=== PATIENT | female | born 1960 | race Caucasian/White ===

== ENCOUNTER → 2017-06-19 | Outpatient (CLI) | payer OTHER ==
--- NOTE | 2017-06-20 14:52 | MAM ---
EXAM DESCRIPTION: 3D Screening BILATERAL CLINICAL HISTORY: 57 yearsFemaleSCREENING. No complaints. Postmenopausal. Hormone replacement five or more years earlier.. COMPARISON: prior. No prior reports available. Reports from prior examinations also reviewed. Report from prior examination also reviewed. TECHNIQUE: Bilateral CC and MLO projection full-field images, 3-D tomosynthesis digital mammographic technique. Also bilateral synthesized CC/ MLO full-field images. CAD not utilized. FINDINGS: The breast parenchymal density pattern is: Scattered areas of fibroglandular density. No skin thickening or nipple retraction focal asymmetry in the middle third of the lateral right breast at the 930 no definite calcifications or mass density. Well-circumscribed mass densities in the anterior third of the medial right breast and in the axillary tail of the right breast showing radiolucency with, symphysis consistent with lymph nodes. Bilateral axillary lymph nodes. Intramammary lymph node in the upper outer quadrant of the medial third of the left breast. Clock position. No focal, stellate mass or density, , and no suspicious microcalcifications bilaterally. IMPRESSION: BI-RADS CATEGORY: 0 - INCOMPLETE- Need additional imaging evaluation. FOLLOW-UP: Recall for additional imaging: Targeted right breast sonography of the region of interest in the middle third of the lateral right breast as indicated in the report.. Written communication explaining the results and follow-up will be mailed to the patient and referring care provider. Electronically signed by: Marlo Morse MD 06/20/2017 2:51 PM CDT Workstation: [id number]
== END ==
LOC: MAMMO 08:42
PROVIDERS: ATTEND Nurse Practitioner Family
DX: Z12.31 Encounter for screening mammogram for malignant neoplasm of breast (principal)

== ENCOUNTER → 2017-07-25 | Outpatient (CLI) | payer OTHER | END | disposition home or self-care (01) | LOC: YCFC.O 15:44 | PROVIDERS: ATTEND Nurse Practitioner Family | DX: R30.0 Dysuria (principal) ==

== ENCOUNTER → 2017-10-31 | Outpatient (CLI) | payer OTHER | END | disposition home or self-care (01) | LOC: LAB.O 12:11 | PROVIDERS: ATTEND Nurse Practitioner Family | DX: R30.0 Dysuria (principal) ==

== ENCOUNTER → 2018-05-09 | Outpatient (CLI) | payer OTHER | LOC: YCFC.O 10:47 | PROVIDERS: ATTEND Nurse Practitioner Family | DX: Z00.00 Encounter for general adult medical examination without abnormal findings (principal); Z13.29 Encounter for screening for other suspected endocrine disorder; Z13.220 Encounter for screening for lipoid disorders; R53.83 Other fatigue ==

== ENCOUNTER → 2018-05-26 | Outpatient (CLI) | payer OTHER | LOC: LAB.O 07:53 | PROVIDERS: ATTEND Nurse Practitioner Family | DX: R19.7 Diarrhea, unspecified (principal) ==

== ENCOUNTER → 2018-07-03 | Outpatient (CLI) | payer OTHER ==
--- NOTE | 2018-07-07 10:39 | MAM ---
EXAM DESCRIPTION: 3D Screening BILATERAL : Digital Mammography. CLINICAL HISTORY: 58 years Female SCREENING . No complaints. No family history of breast cancer. Childbirth. Postmenopausal. Currently on HRT. Right breast benign biopsy. COMPARISON: 3-D Mckenzie synthesis bilateral screening mammography 06/19/2017. Targeted right breast ultrasound 07/03/2017. Reports from prior examinations also reviewed. TECHNIQUE: Bilateral CC and MLO projection full-field images, 3-D tomosynthesis digital mammographic technique. CAD not utilized. FINDINGS: The breast parenchymal density pattern is: Scattered areas of fibroglandular density. No skin thickening or nipple retraction. . Right axillary and intramammary lymph nodes. Solitary microcalcifications bilaterally. Region of apparent focal asymmetry developing since the prior study at the 1200 clock position of the middle third of the left breast, 4 cm from the nipple. No new focal, stellate mass or density, focal asymmetry , and no suspicious microcalcifications right breast. IMPRESSION: BI-RADS CATEGORY: 0 - INCOMPLETE- Need additional imaging evaluation. FOLLOW-UP: Recall for additional imaging: Bilateral 3-D tomosynthesis full field LM images as well as left breast MLO 2-D spot compression of the region of interest. Targeted left breast ultrasound if indicated by diagnostic images.. Written communication concerning the IMPRESSION and Follow-up, will be mailed to the patient and referring health care provider. Electronically signed by: Marlo Morse MD 07/07/2018 10:38 AM CDT
== END ==
LOC: MAMMO 08:30
PROVIDERS: ATTEND Nurse Practitioner Family
DX: Z12.31 Encounter for screening mammogram for malignant neoplasm of breast (principal)

== ENCOUNTER → 2018-07-28 | Outpatient (CLI) | payer OTHER ==
--- NOTE | 2018-07-28 15:52 | MAM ---
EXAM DESCRIPTION: Diagnostic Mammo,Bilateral: Digital Mammography CLINICAL HISTORY: 58 yearsFemaleABNORMAL MAMMOGRAM focal asymmetry anterior to mid left breast.. COMPARISON: Bilateral screening digital breast tomosynthesis 07/03/2018. Targeted ultrasound left breast following this examination.. TECHNIQUE: Bilateral LM projection full-field images, digital mammographic tomosynthesis technique. Spot compression tomosynthesis anterior left breast in the LM and CC projections. Bilateral MLO full-field 2-D digital images. CAD not utilized. FINDINGS: The breast parenchymal density pattern is: Scattered areas of fibroglandular density. No skin thickening or nipple retraction bilateral axillary lymph nodes. Intramammary posterior lymph node on the right. Focal asymmetry at the 902 1200 clock position of the anterior and mid left breast approximately 4 cm from the nipple. Not as well demonstrated with the LM images. Ultrasound: Scanning of the upper inner quadrant of the anterior left breast with emphasis on the 900 clock position in the retroareolar breast. Heterogeneous fibroglandular and fatty echotexture. No distinct solid mass or cyst. No large calcifications or parenchymal edema. No overlying skin changes. No abnormal vascularity. IMPRESSION: 1. Bi-Rads Category 2: Benign. 2. Please refer to bilateral diagnostic digital breast tomosynthesis examination and report on this visit. The FINDINGS and the FOLLOW-UP plan were reviewed in person with the patient after the examination. Written communication explaining the IMPRESSION and FOLLOW-UP will be mailed to the patient and referring care provider. Electronically signed by: Marlo Morse MD 07/28/2018 3:50 PM CDT
--- NOTE | 2018-07-28 15:58 | US ---
EXAM DESCRIPTION: Breast,Left: Ultrasound CLINICAL HISTORY: 58 yearsFemaleABN MAMMO COMPARISON: Digital diagnostic tomosynthesis mammogram bilateral breast on this visit. TECHNIQUE: Transcutaneous scanning of the left breast utilizing workman-scale and Doppler modes. Scanning performed by the automobile mechanic helper and Dr. oMrse. FINDINGS: Scanning of the upper inner quadrant of the anterior left breast with emphasis on the 900 clock position in the retroareolar breast. Heterogeneous fibroglandular and fatty echotexture. No distinct solid mass or cyst. No large calcifications or parenchymal edema. No overlying skin changes. No abnormal vascularity. IMPRESSION: 1. Bi-Rads Category 2: Benign. 2. Please refer to bilateral digital tomosynthesis diagnostic breast examination and report on this visit. The FINDINGS and the FOLLOW-UP plan were reviewed in person with the patient after the examination. Written communication explaining the IMPRESSION and FOLLOW-UP will be mailed to the patient and referring care provider. Electronically signed by: Marlo Morse MD 07/28/2018 3:57 PM CDT
== END ==
LOC: US 11:30
PROVIDERS: ATTEND Nurse Practitioner Family
DX: R92.8 Other abnormal and inconclusive findings on diagnostic imaging of breast (principal)

== ENCOUNTER → 2018-08-28 | Outpatient (CLI) | payer OTHER ==
--- NOTE | 2018-08-28 14:32 | CT ---
EXAM DESCRIPTION: Chest w/o Contrast CLINICAL HISTORY: 58 years, Female, ABNORMAL FINDINGS ON DIAGNOSTIC IMAGING COMPARISON: Chest x-ray August 21, 2018 TECHNIQUE: Thin-section noncontrast axial CT images are obtained according to our protocol. Reconstructed MPR images are created and reviewed as well. FINDINGS: Lungs: Minimal linear scarring in the right middle lobe. There is mild left apical pleural parenchymal scarring. Otherwise no consolidating pulmonary infiltrate or groundglass infiltrate. No worrisome pulmonary mass or nodule. Previous chest x-ray showed density in the right lung base. No infiltrate or mass is seen in the right lower lung zone involving middle lobe or lower lobe. Slightly prominent rib cartilage calcification is seen anteriorly (image 47, series 2) which may account for the density on the chest x-ray. Mediastinum: Lymph nodes are normal in size. Normal vascular contours. Heart size is normal with no pericardial effusion. Chest wall/axilla: No mass or adenopathy. Breast tissue appears symmetrical. Lower neck/supraclavicular: No mass or adenopathy. Upper abdomen: Unremarkable upper abdominal viscera. Coronal and sagittal reformatted images confirm the findings. IMPRESSION: No malignant or infectious process is identified in the lungs. This exam was performed according to our departmental dose-optimization program, which includes automated exposure control, adjustment of the mA and/or kV according to patient size and/or use of iterative reconstruction technique. Total DLP equals 495.97 mGycm. Electronically signed by: Jordi Pereira MD 08/28/2018 2:31 PM CDT
== END ==
LOC: CT 13:37
PROVIDERS: ATTEND Nurse Practitioner Family
DX: R93.8 Abnormal findings on diagnostic imaging of other specified body structures (principal)

== ENCOUNTER → 2018-08-29 | Outpatient (CLI) | payer OTHER ==
--- NOTE | 2018-08-31 18:56 | RAD ---
EXAM DESCRIPTION: Foot,Left 3 Views CLINICAL HISTORY: ARTHRALGIA COMPARISON: None. TECHNIQUE: AP, lateral, and oblique images left foot. FINDINGS: Normal bone mineral density. No fracture or dislocation. Minimal narrowing of the IP joints of the second through fifth toes. No bony margin abnormalities. No abnormal radiodense objects in the soft tissues or joint spaces. IMPRESSION: Minimal narrowing DIP joints of the second through fifth toes. No acute bony abnormality. Electronically signed by: Marlo Morse MD 08/31/2018 6:55 PM CDT
== END ==
LOC: RAD 15:01
PROVIDERS: ATTEND Nurse Practitioner Family
DX: M25.579 Pain in unspecified ankle and joints of unspecified foot (principal)

== ENCOUNTER → 2018-09-04 | Outpatient (CLI) | payer OTHER ==
--- NOTE | 2018-09-05 10:39 | MRI ---
Study: MRI of the Left Foot. Indication: PAIN IN LT FOOT Technique: Multiplanar, multi sequence MRI of the left foot was obtained without intravenous contrast. Comparison: Radiographs August 29, 2018. Findings: Abnormal marrow edema throughout the majority of the third metatarsal, only sparing the head and neck. This is likely stress-related. No fracture plane identified. Moderate osteoarthritis first MTP joint with chondral thinning and small joint effusion. Lisfranc ligament intact. Prior partial thickness tear anterior talofibular ligament. Prior sprain anterior talofibular ligament. Tenosynovitis peroneal tendons with long segment tendinosis and longitudinal split tearing peroneus brevis tendon. Less pronounced tendinosis peroneus longus tendon. Plantar fascia intact. Impression: Stress-related marrow edema throughout the third metatarsal without displacement fracture. Tenosynovitis of the peroneal tendons with long segment tendinosis and longitudinal split tearing of the peroneus brevis tendon with less pronounced tendinosis peroneus longus tendon. Moderate osteoarthritis first MTP joint. Electronically signed by: Curt Roy MD 09/05/2018 10:38 AM CDT
== END ==
LOC: MRI 14:00
PROVIDERS: ATTEND Nurse Practitioner Family
DX: M19.072 Primary osteoarthritis, left ankle and foot (principal); M65.872 Other synovitis and tenosynovitis, left ankle and foot; M79.672 Pain in left foot

== ENCOUNTER → 2018-10-08 | Outpatient (CLI) | payer OTHER ==
--- NOTE | 2018-10-09 07:57 | RAD ---
EXAM DESCRIPTION: Foot,Left 3 Views CLINICAL HISTORY: CLOSED FRACTURE OF TARSAL AND METATARSAL BONES COMPARISON: August 29, 2018 IMPRESSION: 3 views of the left foot show no evidence of acute fracture, focal bone destruction, or joint dislocation. No obvious periosteal reaction or cortical thickening is seen. Third metatarsal is unremarkable on plain film x-ray. Electronically signed by: Bahman Cifuentes MD 10/09/2018 7:56 AM [facility]
== END ==
LOC: RAD 15:29
PROVIDERS: ATTEND Orthopaedic Surgery
DX: S92.334D Nondisplaced fracture of third metatarsal bone, right foot, subsequent encounter for fracture with routine healing (principal)

== ENCOUNTER → 2018-11-06 | Outpatient (CLI) | payer OTHER | LOC: LAB.O 07:46 | PROVIDERS: ATTEND Nurse Practitioner Family | DX: R19.7 Diarrhea, unspecified (principal) ==

== ENCOUNTER → 2019-01-08 | Outpatient (CLI) | payer OTHER ==
--- NOTE | 2019-01-08 16:53 | US ---
EXAM DESCRIPTION: Carotid Duplex CLINICAL HISTORY: HEADACHE COMPARISON: None Available. TECHNIQUE: Carotid Doppler ultrasound FINDINGS: Right Submitted images show no significant stenosis in the common carotid, internal carotid or external carotid arteries.. The following flow velocities were obtained: Common carotid artery peak systolic flow velocity measures 90 centimeters per second. Internal carotid artery peak systolic flow velocity measures 70 centimeters per second. External carotid artery peak systolic flow velocity measures 105 centimeters per second. Flow in the right vertebral artery is antegrade. The right internal carotid to common carotid peak systolic flow velocity ratio equals 0.8 which is normal. Left Submitted images show normal caliber of the left common carotid, internal carotid and external carotid arteries with no significant stenosis. The following flow velocities were obtained: Common carotid artery peak systolic flow velocity measures 108 centimeters per second. Internal carotid artery peak systolic flow velocity measures 70 centimeters per second. External carotid artery peak systolic flow velocity measures 111 centimeters per second. Flow in the left vertebral artery is antegrade. The left internal carotid to common carotid peak systolic flow velocity ratio of 0.6 is normal. IMPRESSION: No hemodynamically significant stenosis. Electronically signed by: Jordi Pereira MD 01/08/2019 4:51 PM [facility]IST
== END ==
LOC: GMA 01-07 14:24
PROVIDERS: ATTEND Family Medicine
DX: R51 Headache (principal); R20.2 Paresthesia of skin; E78.5 Hyperlipidemia, unspecified; R53.83 Other fatigue

== ENCOUNTER → 2019-06-12 | Outpatient (CLI) | payer OTHER | LOC: YCFC.O 08:17 | PROVIDERS: ATTEND Nurse Practitioner Family | DX: D51.0 Vitamin B12 deficiency anemia due to intrinsic factor deficiency (principal) ==

== ENCOUNTER → 2019-08-07 | Outpatient (CLI) | payer OTHER ==
--- NOTE | 2019-08-07 15:29 | RAD ---
EXAM DESCRIPTION: KUB: CR/DR CLINICAL HISTORY: 59 years Female, LOWER ABD PN COMPARISON: None. TECHNIQUE/FINDINGS: One view AP abdomen and pelvis. IMPRESSION: Fecal material proximal and mid colon. Mildly constipated. Gas in the distal colon. No gas-filled distended segments of bowel. Minimal gas in the small bowel. Normal bone density. No abnormal radiodense objects overlying the urinary tracts. Multiple bilateral pelvic vascular calcifications. Electronically signed by: Marlo Morse MD 08/07/2019 3:27 PM CDT
== END ==
LOC: YCFC.O 14:36
PROVIDERS: ATTEND Nurse Practitioner Family
DX: K59.00 Constipation, unspecified (principal); I87.8 Other specified disorders of veins

== ENCOUNTER 2019-08-27 11:37 | Emergency (ER) | payer OTHER ==
[2019-08-27] MEDS ORDERED: TETANUS,DIPHTHERIA,PERTUSSIS 1 EA SYG IM ONE (11:52)
[2019-08-27 12:01] VITALS: TEMP 98.3
--- NOTE | 2019-08-27 13:01 | RAD ---
EXAM DESCRIPTION: Hand,Right 3 Views CLINICAL HISTORY: right 4th finger was crushed in door COMPARISON: None. TECHNIQUE: 3 views right FINDINGS: Mild distal interphalangeal joint arthritis is observed. No fracture is detected. No foreign body is observed. IMPRESSION: Mild degenerative changes are observed. No fracturing is detected. Electronically signed by: Bandar Brannon MD 08/27/2019 1:00 PM CDT
--- NOTE | 2019-08-27 13:05 | ED.PDOC ---
History of Present Illness - General Chief Complaint: Upper Extremity Injury Stated Complaint: finger injury Time Seen by Provider: 08/27/19 11:51 Source: patient, RN notes reviewed, Vital Signs reviewed - History of Present Illness Initial Comments: Pt presents from work after smashing her right 4th finger between a cart and the door. Pt c/o pain. Her tetanus is NOT UP TO DATE. Pt denies any numbness distal to the injury. She is able to flex the finger. Pt denies any other symptoms, specifically no cp/sob/n/v/d/abd pain. Pain - Upper Extremity: mild: Hand, right Method of Injury: direct blow Improving Factors: cold therapy Worsening Factors: movement Associated Symptoms: none Allergies/Adverse Reactions: Allergies NO KNOWN ALLERGY Allergy (Verified 08/27/19 11:56) Review of Systems - Review of Systems Constitutional: States: no symptoms reported EENTM: States: no symptoms reported Respiratory: States: no symptoms reported Cardiology: States: no symptoms reported Gastrointestinal/Abdominal: States: no symptoms reported Genitourinary: States: no symptoms reported Musculoskeletal: States: see HPI Skin: States: no symptoms reported Neurological: States: no symptoms reported Endocrine: States: no symptoms reported Hematologic/Lymphatic: States: no symptoms reported All other Systems: Reviewed and Negative Past Medical History (General) - Patient Medical History Hx Seizures: No Hx Stroke: No Hx Dementia: No Hx Asthma: Yes Hx of COPD: No Hx Cardiac Disorders: - CAD Hx Congestive Heart Failure: No Hx Thyroid Disease: No Hx Diabetes: No Hx Gastroesophageal Reflux: Yes Surgical History: Hysterectomy, other - Vaccination History Hx Tetanus, Diphtheria Vaccination: No Hx Influenza Vaccination: Yes - 2017 Hx Pneumococcal Vaccination: No Immunizations Comment: shingles vaccine Family Medical History - Family History Mother Family History: Unknown Physical Exam - Physical Exam General Appearance: Alert, Comfortable, No apparent distress, Well Developed, Well Groomed, Well Hydrated, Well Nourished Eyes, Ears, Nose, Throat Exam: PERRL/EOMI, normal ENT inspection Neck: full range of motion, supple, normal inspection Cardiovascular/Respiratory: regular rate, rhythm, no M/R/G, normal peripheral pulses, no JVD, normal breath sounds, no respiratory distress Abdominal Exam: non-tender Back Exam: normal inspection, no vertebral tenderness Shoulder Exam: normal inspection, non-tender, no evidence of injury, normal ROM Elbow/Forearm Exam: normal inspection, non-tender, no evidence of injury, normal ROM Wrist Exam: normal inspection, non-tender, no evidence of injury, normal ROM Hand Exam: ecchymosis - right 4th finger with small skin tear. , soft tissue tenderness, stiffness, swelling Neuro/Tendon: normal sensation, normal motor functions, normal tendon functions Mental Status: alert Skin Exam: normal color, warm/dry Progress - Progress Progress: 08/27/19 13:07 Laboratory Results - last 24 hr 08/27/19 08/27/19 12:12 12:12 Urine Opiates Screen Negative Urine Barbiturates Negative Ur Phencyclidine Scrn Negative U Amphetamin/Meth Scrn Negative U Benzodiazepines Scrn Negative U Cocaine Metab Screen Negative U Cannabinoids Screen Negative Ethyl Alcohol < 5.40 08/27/19 13:09 XR hand, 3 views 3 views right FINDINGS: Mild distal interphalangeal joint arthritis is observed. No fracture is detected. No foreign body is observed. IMPRESSION: Mild degenerative changes are observed. No fracturing is detected. Electronically signed by: Bandar Brannon MD 08/27/2019 1:00 PM CDT Departure - Departure Clinical Impression: Finger contusion, Crush injury to finger, Skin tear, Tetanus toxoid inoculation Time of Disposition: 13:10 Disposition: Discharge to Home or Self Care Condition: Good Departure Forms: ED Discharge - Pt. Copy, Patient Portal Self Enrollment Instructions: Contusion (DC), Crush Injury (DC) Referrals: Chanelle Hughes NP [Primary Care Provider] - 1-2 Weeks
[2019-08-27] MEDS ORDERED: NEOMYCIN-BACITRACIN-POLYMYXIN 0.9 GM UD TOP ONE (13:27)
[2019-08-27 13:41] VITALS: BP 124/78; O2SAT 98
== END 2019-08-27 13:15 | disposition home or self-care (01) ==
LOC: ER 11:37
DX: S61.214A Laceration without foreign body of right ring finger without damage to nail, initial encounter (principal); S67.194A Crushing injury of right ring finger, initial encounter; I25.10 Atherosclerotic heart disease of native coronary artery without angina pectoris; J45.909 Unspecified asthma, uncomplicated; W23.0XXA Caught, crushed, jammed, or pinched between moving objects, initial encounter; Y92.9 Unspecified place or not applicable

== ENCOUNTER → 2019-09-03 | Outpatient (CLI) | payer BC | LOC: LAB.O 09:28 | PROVIDERS: ATTEND Nurse Practitioner Family | DX: Z00.00 Encounter for general adult medical examination without abnormal findings (principal) ==

== ENCOUNTER → 2019-09-07 | Outpatient (CLI) | payer BC ==
--- NOTE | 2019-09-09 17:24 | MAM ---
EXAM DESCRIPTION: 3D Screening BILATERAL : Digital Mammography. CLINICAL HISTORY: 59 years Female ANNUAL SCREENING . No personal or family history of breast cancer. Menarche age 17. Childbirth. Postmenopausal 10+ years. Currently on HRT. Benign right breast biopsy. Lifetime risk of developing breast cancer (Tyrer-Cuzick model)(%): 7.4. COMPARISON: Bilateral screening digital breast tomosynthesis 07/03/2018. Bilateral diagnostic tomosynthesis mammography 07/28/2018.. TECHNIQUE: Bilateral CC and MLO projection full-field images, digital tomosynthesis mammographic technique. Bilateral digital 2-D full-field MLO images. CAD not available for tomosynthesis or 2-D images. FINDINGS: The breast parenchymal density pattern is: Scattered areas of fibroglandular density. No skin thickening or nipple retraction. Bilateral axillary lymph nodes. Bilateral skin moles indicated by skin markers. No new focal, stellate mass or density, focal asymmetry , and no suspicious microcalcifications bilaterally. Stable mammograms compared to prior study. IMPRESSION: Benign exam. BIRAD CATEGORY: 2 BENIGN FINDINGS. RECOMMENDATIONS: FOLLOW UP: Routine digital bilateral mammographic screening, one year interval from September 2019. Written communication explaining the IMPRESSION and follow-up, will be mailed to the patient and referring health care provider. According to the [employer], yearly mammograms are recommended starting at age 40 and continuing as long as a woman is in good health. Any breast change noted on a breast self-exam should be reported promptly to the patient's healthcare provider. Breast MRI is recommended for women with an approximately 20-25% or greater lifetime risk of breast cancer, including women with a strong family history of breast or ovarian cancer and women who have been treated for Hodgkin's disease. A negative mammographic report should not delay tissue diagnosis in patients with significant clinical history or physical findings. Extremely dense breast tissue limits the sensitivity of digital mammography. Electronically signed by: Marlo Morse MD 09/09/2019 5:22 PM CDT
== END ==
LOC: MAMMO 10:11
PROVIDERS: ATTEND Nurse Practitioner Family
DX: Z12.31 Encounter for screening mammogram for malignant neoplasm of breast (principal)

== ENCOUNTER → 2019-09-10 | Outpatient (CLI) | payer BC ==
--- NOTE | 2019-09-10 17:51 | RAD ---
EXAM DESCRIPTION: Pelvis CLINICAL HISTORY: 59 years Female, HIP PAIN COMPARISON: None. FINDINGS: Single view of the pelvis demonstrates osteopenia and mild degenerative changes. Extensive pelvic phleboliths noted. SI joints and symphysis pubis and superior and inferior pubic rami.. No fracture or dislocation is seen. IMPRESSION: Negative pelvis one view. Electronically signed by: Beni Bolden MD 09/10/2019 5:49 PM CDT
--- NOTE | 2019-09-10 17:52 | RAD ---
EXAM DESCRIPTION: Hip,Left 2 Views CLINICAL HISTORY: HIP PAIN COMPARISON: None Available. TECHNIQUE: AP/frog leg lateral FINDINGS: Two views left hip demonstrate hip joint is intact with preserved joint space. No fracture or dislocation is seen. Medial wall of the acetabulum and the superior and inferior pubic rami.. IMPRESSION: Negative left hip two views. Electronically signed by: Beni Bolden MD 09/10/2019 5:50 PM CDT
== END ==
LOC: RAD 11:41
PROVIDERS: ATTEND Orthopaedic Surgery
DX: M25.552 Pain in left hip (principal)

== ENCOUNTER → 2020-03-25 | Outpatient (CLI) | payer BC ==
--- NOTE | 2020-03-25 12:58 | RAD ---
One Radiographs of the Abdomen. Indication: HAMATURIA UNSPECIFIED Comparison: August 07, 2019. Impression: Bowel gas pattern nonspecific. No abnormal calcifications. Multiple tiny calcified phleboliths throughout the pelvis again noted. If high clinical concern for renal stone, correlation with CT recommended. No acute osseous abnormality. Electronically signed by: Curt Roy MD 03/25/2020 12:56 PM CDT
== END ==
LOC: RAD 12:12
PROVIDERS: ATTEND Nurse Practitioner
DX: R31.9 Hematuria, unspecified (principal); I86.2 Pelvic varices

== ENCOUNTER → 2020-10-20 | Outpatient (CLI) | payer BC ==
--- NOTE | 2020-10-21 16:05 | MAM ---
EXAM DESCRIPTION: 3D Screening BILATERAL : Digital Mammography. CLINICAL HISTORY: 60 years Female screening . No complaints. No family history of breast cancer. Menarche age 17. Childbirth age 23. Menopause age 49. Benign right breast biopsy. Currently on HRT. Lifetime risk of developing breast cancer (Tyrer-Cuzick model)(%): 7.4. COMPARISON: Bilateral screening digital breast tomosynthesis September 2019 and July 2018. Diagnostic breast tomosynthesis and left breast ultrasound July 2018. TECHNIQUE: Bilateral CC and MLO projection full-field images, digital tomosynthesis mammographic technique. Bilateral digital 2-D full-field MLO images. CAD available for 2-D images. FINDINGS: The breast parenchymal density pattern is: Scattered areas of fibroglandular density. No skin thickening or nipple retraction. Axillary nodes. Focal asymmetry and possible architectural distortion 2:30 position middle third right breast 4 cm from the nipple. No new focal, stellate mass or density, focal asymmetry , and no suspicious microcalcifications left breast. IMPRESSION: BI-RADS CATEGORY: 0 - INCOMPLETE- Need additional imaging evaluation. RECOMMENDATIONS: FOLLOW-UP: Recall for additional imaging: Directed right breast ultrasound of the region of interest. Written communication concerning the IMPRESSION and Follow-up, will be mailed to the patient and referring health care provider. Electronically signed by: Marlo Morse MD 10/21/2020 4:03 PM [facility]
== END ==
LOC: MAMMO 09:41
PROVIDERS: ATTEND Family Medicine
DX: Z12.31 Encounter for screening mammogram for malignant neoplasm of breast (principal); M85.80 Other specified disorders of bone density and structure, unspecified site; R94.6 Abnormal results of thyroid function studies

== ENCOUNTER → 2020-10-31 | Outpatient (CLI) | payer SELFPAY ==
--- NOTE | 2020-11-01 16:15 | US ---
EXAM DESCRIPTION: Breast,Right: Ultrasound. CLINICAL HISTORY: 60 yearsFemaleABN MAMMO. Focal asymmetry architectural distortion right breast. COMPARISON: Bilateral screening digital breast tomosynthesis October 2020 and September 2019. TECHNIQUE: Transcutaneous scanning of the right breast utilizing workman-scale and Doppler modes. Scanning performed by the metal spinner ; observation by Dr. Morse. FINDINGS: Mixture of fibroglandular tissues and fatty echotexture. No dominant solid mass, no distinct cyst, no fluid collection, no large calcifications. No overlying skin changes. IMPRESSION: Benign exam. BIRAD CATEGORY: 2 BENIGN FINDINGS. RECOMMENDATIONS: FOLLOW UP: Routine digital bilateral mammographic screening, one year interval from October 2020. Written communication explaining the IMPRESSION and follow-up, will be mailed to the patient and referring health care provider. The FINDINGS and the FOLLOW-UP plan were reviewed in person with the patient after the examination. According to the [employer], yearly mammograms are recommended starting at age 40 and continuing as long as a woman is in good health. Any breast change noted on a breast self-exam should be reported promptly to the patient's healthcare provider. Breast MRI is recommended for women with an approximately 20-25% or greater lifetime risk of breast cancer, including women with a strong family history of breast or ovarian cancer and women who have been treated for Hodgkin's disease. A negative mammographic report should not delay tissue diagnosis in patients with significant clinical history or physical findings. Extremely dense breast tissue limits the sensitivity of digital mammography. 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
== END ==
LOC: MAMMO 14:42
PROVIDERS: ATTEND Family Medicine
DX: R92.8 Other abnormal and inconclusive findings on diagnostic imaging of breast (principal)